=== PATIENT | female | born 1935 | race Caucasian/White ===

== ENCOUNTER 2017-09-19 10:10 | Outpatient (CLI) | payer MEDICARE, BC | END 2017-09-19 10:11 | disposition home or self-care (01) | LOC: BICMAMMO 10:10 | PROVIDERS: ATTEND Internal Medicine | DX: Z08 Encounter for follow-up examination after completed treatment for malignant neoplasm (principal); Z85.3 Personal history of malignant neoplasm of breast | CPT/HCPCS: 77066; G0279 ==

== ENCOUNTER 2018-11-28 14:17 | Outpatient (CLI) | payer MEDICARE, BC ==
--- NOTE | 2018-11-28 15:39 | MMO ---
Bilateral MAMMO Bilat Diag DDI+JOSE M. CLINICAL HISTORY: Patient is 83 years old and is seen for diagnostic exam. The patient has no family history of breast cancer. The patient has a history of Skin cancer in 2019; Segmental mastectomy. 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 The patient has a history of left Ultrasound Guided Core Biopsy in April,, left Lumpectomy in April, - malignant and left Excisional Biopsy in 2012 - benign. VIEWS: The views performed were: bilateral craniocaudal with tomosynthesis; bilateral mediolateral oblique with tomosynthesis; and bilateral mediolateral with tomosynthesis. FILMS COMPARED: The present examination has been compared to prior imaging studies performed at [facility] on 03/07/2016, 09/06/2016, 09/19/2017 and 11/28/2018. This study has been interpreted with the assistance of computer-aided detection. MAMMOGRAM FINDINGS: There are scattered fibroglandular densities. Finding 1: Benign calcifications are noted bilaterally. Finding 2: There is a questionable nodular density in the left subaerolar breast on MLO and ML views corresponding to dilated ducts on US. IMPRESSION: FINDING 1: FINDINGS IN BOTH BREASTS ARE BENIGN. FINDING 2: FINDING IN THE LEFT BREAST IS PROBABLY BENIGN. FOLLOW-UP IN 6 MONTHS IS RECOMMENDED. THE RESULTS OF THIS EXAM WERE SENT TO THE PATIENT. ACR BI-RADS Category 3 - Probably benign finding - short interval follow-up suggested. [facility] will notify the patient of the need for additional imaging services. MAMMOGRAPHY NOTE: 1. A negative mammogram report should not delay a biopsy if a dominant of clinically suspicious mass is present. 2. Approximately 10% to 15% of breast cancers are not detected by mammography. 3. Adenosis and dense breasts may obscure an underlying neoplasm. Reported by: MELANIA MENDOZA MD Electonically Signed: [id number]
--- NOTE | 2018-11-28 17:18 | ULT ---
LEFT BREAST ULTRASOUND: Date: 11/28/18 HISTORY: Previous breast cancer, abnormal mammogram today. FINDINGS: Correlation made with mammogram from today. Sonographic evaluation of the retroareolar aspect of the left breast demonstrates dilated ducts, like ly corresponding to the finding on the mammogram. IMPRESSION: BI-RADS Category 3 - Probably benign findings. 6 month follow-up left diagnostic mammogram and left b reast ultrasound recommended. The facility will notify patient of need for additional imaging services. POS: OFF
== END 2018-11-28 14:18 | disposition home or self-care (01) ==
LOC: BICMAMMO 14:17
PROVIDERS: ATTEND Internal Medicine
DX: Z08 Encounter for follow-up examination after completed treatment for malignant neoplasm (principal); Z85.3 Personal history of malignant neoplasm of breast
CPT/HCPCS: 76642; 77066; G0279

== ENCOUNTER 2019-06-05 13:56 | Outpatient (CLI) | payer MEDICARE, BC ==
--- NOTE | 2019-06-05 14:41 | MMO ---
Left Breast MAMMO Unilat Diag DDI LT+JOSE M. CLINICAL HISTORY: Patient is 84 years old and is seen for diagnostic exam. The patient has no family history of breast cancer. The patient has a history of Skin cancer in 2019; Segmental mastectomy. 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 The patient has a history of left Ultrasound Guided Core Biopsy in April,, left Lumpectomy in April, - malignant and left Excisional Biopsy in 2012 - benign. VIEWS: The views performed were: left craniocaudal with tomosynthesis; left mediolateral oblique with tomosynthesis; and left mediolateral with tomosynthesis. FILMS COMPARED: The present examination has been compared to prior imaging studies performed at [facility] on 09/06/2016, 09/19/2017 and 11/28/2018. This study has been interpreted with the assistance of computer-aided detection. MAMMOGRAM FINDINGS: There are scattered fibroglandular densities. Finding 1: There are stable benign appearing calcifications seen in the left breast. Finding 2: There is a stable mass measuring 6 millimeters with circumscribed margins seen in the sub-areolar region of the left breast. Finding 3: There is a stable focal asymmetry seen in the sub-areolar region of the left breast. IMPRESSION: FINDING 1: STABLE CALCIFICATIONS IN THE LEFT BREAST ARE BENIGN. FINDING 2: STABLE MASS IN THE SUB-AREOLAR REGION OF THE LEFT BREAST IS PROBABLY BENIGN. FOLLOW-UP IN 6 MONTHS IS RECOMMENDED. FINDING 3: STABLE FOCAL ASYMMETRY IN THE SUB-AREOLAR REGION OF THE LEFT BREAST IS PROBABLY BENIGN. FOLLOW-UP IN 6 MONTHS IS RECOMMENDED. THE RESULTS OF THIS EXAM WERE SENT TO THE PATIENT. ACR BI-RADS Category 3 - Probably benign finding - short interval follow-up suggested. [facility] will notify the patient of the need for additional imaging services. MAMMOGRAPHY NOTE: 1. A negative mammogram report should not delay a biopsy if a dominant of clinically suspicious mass is present. 2. Approximately 10% to 15% of breast cancers are not detected by mammography. 3. Adenosis and dense breasts may obscure an underlying neoplasm. Reported by: NANDA CHAPMAN MD Electonically Signed: [id number]
== END 2019-06-05 13:57 | disposition home or self-care (01) ==
LOC: BICMAMMO 13:56
PROVIDERS: ATTEND Internal Medicine
DX: R92.8 Other abnormal and inconclusive findings on diagnostic imaging of breast (principal); R92.1 Mammographic calcification found on diagnostic imaging of breast; N64.89 Other specified disorders of breast; N63.42 Unspecified lump in left breast, subareolar
CPT/HCPCS: 77065; G0279

== ENCOUNTER 2019-12-02 13:05 | Outpatient (CLI) | payer MEDICARE, BC ==
--- NOTE | 2019-12-02 14:15 | MMO ---
Bilateral MAMMO Bilat Diag DDI+JOSE M. CLINICAL HISTORY: Patient is 84 years old and is seen for screening. The patient has no family history of breast cancer. The patient has a history of Skin cancer in 2019; Segmental mastectomy. 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 The patient has a history of left Ultrasound Guided Core Biopsy in April,, left Lumpectomy in April, - malignant and left Excisional Biopsy in 2012 - benign. VIEWS: The views performed were: bilateral craniocaudal with tomosynthesis and bilateral mediolateral oblique with tomosynthesis. FILMS COMPARED: The present examination has been compared to prior imaging studies performed at [facility] on 11/28/2018, 06/05/2019 and 12/02/2019. This study has been interpreted with the assistance of computer-aided detection. MAMMOGRAM FINDINGS: There are scattered fibroglandular densities. There are no suspicious masses, suspicious calcifications, or new areas of architectural distortion. IMPRESSION: THERE IS NO MAMMOGRAPHIC EVIDENCE OF MALIGNANCY. A ROUTINE FOLLOW-UP MAMMOGRAM IN 1 YEAR IS RECOMMENDED. THE RESULTS OF THIS EXAM WERE SENT TO THE PATIENT. ACR BI-RADS Category 1 - Negative MAMMOGRAPHY NOTE: 1. A negative mammogram report should not delay a biopsy if a dominant of clinically suspicious mass is present. 2. Approximately 10% to 15% of breast cancers are not detected by mammography. 3. Adenosis and dense breasts may obscure an underlying neoplasm. Reported by: Kaden OGDEN Electonically Signed: [id number]
--- NOTE | 2019-12-02 14:20 | MMO ---
Left US Breast Limited Lt. CLINICAL HISTORY: Patient is 84 years old and is seen for . The patient has a history of Segmental mastectomy. procedure revealed invasive ductal left breast carcinoma in April, and Ultrasound guided core biopsy procedure revealed invasive ductal left breast carcinoma in April,. The patient has a history of left Ultrasound Guided Core Biopsy in April,, left Lumpectomy in April, - malignant and left Excisional Biopsy in 2012 - benign. VIEWS: The views performed were: . FILMS COMPARED: The present examination has been compared to prior imaging studies performed at [facility] on 11/28/2018, 06/05/2019 and 12/02/2019. This study has been interpreted with the assistance of computer-aided detection. LEFT BREAST ULTRASOUND FINDINGS: High-resolution real-time ultrasound scanning was performed. There is an area of duct ectasia seen in the left breast. On ultrasound, no suspicious findings are identified. IMPRESSION: THERE IS NO MAMMOGRAPHIC EVIDENCE OF MALIGNANCY. A ROUTINE FOLLOW-UP MAMMOGRAM IN 1 YEAR IS RECOMMENDED. THE RESULTS OF THIS EXAM WERE SENT TO THE PATIENT. ACR BI-RADS Category 2 - Benign finding MAMMOGRAPHY NOTE: 1. A negative mammogram report should not delay a biopsy if a dominant of clinically suspicious mass is present. 2. Approximately 10% to 15% of breast cancers are not detected by mammography. 3. Adenosis and dense breasts may obscure an underlying neoplasm. Reported by: Kaden OGDEN Electonically Signed: [id number]
== END 2019-12-02 13:06 | disposition home or self-care (01) ==
LOC: BICMAMMO 13:05
PROVIDERS: ATTEND Internal Medicine
DX: R92.8 Other abnormal and inconclusive findings on diagnostic imaging of breast (principal)
CPT/HCPCS: 76642; 77066; G0279

== ENCOUNTER 2020-12-03 10:42 | Outpatient (CLI) | payer MEDICARE, BC | END 2020-12-03 10:43 | disposition home or self-care (01) | LOC: BICMAMMO 10:42 | PROVIDERS: ATTEND Internal Medicine | DX: Z08 Encounter for follow-up examination after completed treatment for malignant neoplasm (principal); Z85.3 Personal history of malignant neoplasm of breast | CPT/HCPCS: 77066; G0279 ==

== ENCOUNTER 2021-01-09 03:12 | Inpatient (IN) | payer MEDICARE, BC ==
[2021-01-09 04:25] LABS: #Eosinphils 0.3 thou/uL (0.0-0.7); #Lymphocytes 1.9 thou/uL (1.20-3.40); #Monocytes 0.6 thou/uL (0.11-0.59); #Neutrophils 4.8 thou/uL (1.40-6.50); %Eosinophils 4.1 % (0.0-10.0); %Lymphocytes 24.8 % (21.0-51.0); %Monocytes 8.2 % (0.0-10.0); %Neutrophils 62.9 % (42.0-75.0); Mean Corpuscular HGB CONC 32.4 g/dL (32.0-36.0); Mean Corpuscular Hemoglobin 29.9 pg (27.0-31.0); Mean Corpuscular Volume 92.2 fL (78.0-98.0); Mean Platelet Volume 7.1 fL (7.4-10.4); Platelet Count 238 thou/uL (130-400); RBC Distribution Width 12.8 % (11.5-14.5); Red Blood Cell (RBC) Count 3.35 mill/uL (4.20-5.40); White Blood Cell (WBC) Count 7.6 thou/uL (4.8-10.8)
[2021-01-09] MEDS ORDERED: Sodium Chloride 0.9% (PF) 10 ML VIAL FS PRN (04:30)
[2021-01-09] MEDS ORDERED: Pantoprazole 40 MG VIAL IVP SCH (04:30)
[2021-01-09 04:38] LABS: ALT (SGPT) 10 U/L (8-55); AST (SGOT) 14 U/L (5-34); Albumin 3.1 g/dL (3.4-4.8); Alkaline Phosphatase 80 U/L (40-110); Anion Gap 9 mmol/L (10-20); BUN (Urea Nitrogen) 18 mg/dL (9.8-20.1); Bilirubin, Total 0.5 mg/dL (0.2-1.2); Calc. Creatinine Clearance 0 mL/min (70-130); Calcium 9.1 mg/dL (7.8-10.44); Carbon Dioxide 28 mmol/L (23-31); Chloride 109 mmol/L (98-107); Globulin 2.8 g/dL (2.4-3.5); Glucose 107 mg/dL (83-110); INR-International Normal Ratio 1.1; Lipase 47 U/L (8-78); Protein, Total 5.9 g/dL (5.8-8.1); Prothrombin Time 14.2 sec (12.0-14.7); Sodium 142 mmol/L (136-145)
[2021-01-09 04:39] LABS: PTT 31.6 sec (22.9-36.1)
[2021-01-09] MEDS ORDERED: Senokot S 8.6-50 MG TAB PO PRN (07:12)
[2021-01-09] MEDS ORDERED: Loperamide HCl 2 MG CAP PO PRN (07:12)
[2021-01-09] MEDS ORDERED: Acetaminophen 325 MG TAB PO PRN (07:12)
[2021-01-09] MEDS ORDERED: Guaifenesin DM 100-10/5 ML UDCUP PO PRN (07:12)
[2021-01-09] MEDS ORDERED: Calcium Carbonate 500 MG ChewTAB PO PRN (07:12)
[2021-01-09] MEDS ORDERED: Ondansetron ODT 4 MG TAB PO PRN (07:12)
[2021-01-09] MEDS ORDERED: Bisacodyl 10 MG SUPP PR PRN (07:12)
[2021-01-09] MEDS ORDERED: Ondansetron PF 4 MG/2 ML Vial IVP PRN (07:12)
[2021-01-09] MEDS ORDERED: Artificial Tear Sol 15 ML BOT EA EYE PRN (07:14)
[2021-01-09] MEDS ORDERED: Hydrocerin (Eucerin) Cream 120 gm Jar TOP PRN (07:14)
[2021-01-09] MEDS ORDERED: Sodium Chloride 0.65% Nasal 44 ML BOT EA NARE PRN (07:14)
[2021-01-09] MEDS ORDERED: Loratadine 10 MG TAB PO PRN (07:14)
[2021-01-09] MEDS ORDERED: Cepastat Lozenges 1 LOZ PO PRN (07:14)
[2021-01-09] MEDS: Flecainide 50 MG TAB PO SCH ×2 (09:27→19:42)
[2021-01-09] MEDS: Lisinopril 20 MG TAB PO SCH ×2 (09:27→19:42)
[2021-01-09] MEDS: Multivitamin W/ Minerals 1 TAB PO SCH ×2 (09:27→19:43)
[2021-01-09] MEDS: Pantoprazole 40 MG VIAL IVP SCH ×2 (09:27→19:41)
[2021-01-09] MEDS: Isosorbide Mononitrate 20 MG TAB PO SCH ×2 (09:27→19:43)
[2021-01-09] MEDS: hydrALAZINE 20 MG/ML VIAL SLOW IVP PRN ×3 (09:28→23:30)
[2021-01-09 12:33] VITALS: BMI 28.3
[2021-01-09 15:58] LABS: Hemoglobin 9.6 g/dL (12.0-16.0)
[2021-01-09 19:03] LABS: Hemoglobin 8.8 g/dL (12.0-16.0)
[2021-01-09] MEDS: Simvastatin 10 MG TAB PO SCH (19:42)
[2021-01-09] MEDS: Melatonin 3 MG TAB PO SCH (19:43)
[2021-01-09 23:39] LABS: Hemoglobin 7.6 g/dL (12.0-16.0)
[2021-01-10 05:30] LABS: #Eosinphils 0.3 thou/uL (0.0-0.7); #Lymphocytes 2.3 thou/uL (1.20-3.40); #Monocytes 0.6 thou/uL (0.11-0.59); #Neutrophils 5.2 thou/uL (1.40-6.50); %Basophils 0.5 % (0.0-1.0); %Eosinophils 3.4 % (0.0-10.0); %Monocytes 7.5 % (0.0-10.0); %Neutrophils 61.6 % (42.0-75.0); Mean Corpuscular HGB CONC 32.5 g/dL (32.0-36.0); Mean Corpuscular Volume 92.4 fL (78.0-98.0); Mean Platelet Volume 6.7 fL (7.4-10.4); Platelet Count 216 thou/uL (130-400); RBC Distribution Width 12.9 % (11.5-14.5); Red Blood Cell (RBC) Count 2.66 mill/uL (4.20-5.40); White Blood Cell (WBC) Count 8.4 thou/uL (4.8-10.8)
[2021-01-10 05:49] LABS: ALT (SGPT) 10 U/L (8-55); AST (SGOT) 13 U/L (5-34); Albumin 2.8 g/dL (3.4-4.8); Alkaline Phosphatase 65 U/L (40-110); Anion Gap 11 mmol/L (10-20); BUN (Urea Nitrogen) 16 mg/dL (9.8-20.1); Bilirubin, Total 0.5 mg/dL (0.2-1.2); Calc. Creatinine Clearance 54 mL/min (70-130); Calcium 8.5 mg/dL (7.8-10.44); Carbon Dioxide 23 mmol/L (23-31); Chloride 110 mmol/L (98-107); Globulin 2.4 g/dL (2.4-3.5); Glucose 100 mg/dL (83-110); Potassium 4.1 mmol/L (3.5-5.1); Protein, Total 5.2 g/dL (5.8-8.1); Sodium 140 mmol/L (136-145)
[2021-01-10] MEDS: Levothyroxine Sodium 75 MCG TAB PO SCH (06:08)
[2021-01-10] MEDS: Multivitamin W/ Minerals 1 TAB PO SCH ×2 (10:21→20:52)
[2021-01-10] MEDS: Amlodipine 5 MG TAB PO SCH (10:21)
[2021-01-10] MEDS: Isosorbide Mononitrate 20 MG TAB PO SCH ×2 (10:22→20:52)
[2021-01-10] MEDS: Flecainide 50 MG TAB PO SCH ×2 (10:22→20:52)
[2021-01-10] MEDS: Lisinopril 20 MG TAB PO SCH ×2 (10:22→20:52)
[2021-01-10] MEDS: Pantoprazole 40 MG VIAL IVP SCH ×2 (10:24→21:56)
[2021-01-10 11:12] LABS: SARS-CoV-2 PCR by NAA Not Detected (NotDetected)
[2021-01-10] MEDS ORDERED: Ferrous Sulfate 325 MG TAB PO SCH (18:00)
[2021-01-10] MEDS: Melatonin 3 MG TAB PO SCH (20:52)
[2021-01-10] MEDS: Simvastatin 10 MG TAB PO SCH (20:52)
[2021-01-11 05:15] LABS: #Eosinphils 0.4 thou/uL (0.0-0.7); #Lymphocytes 1.7 thou/uL (1.20-3.40); #Monocytes 0.7 thou/uL (0.11-0.59); #Neutrophils 4.6 thou/uL (1.40-6.50); %Basophils 0.5 % (0.0-1.0); %Eosinophils 5.4 % (0.0-10.0); %Lymphocytes 22.5 % (21.0-51.0); %Monocytes 9.6 % (0.0-10.0); %Neutrophils 62.1 % (42.0-75.0); Hemoglobin 7.7 g/dL (12.0-16.0); Mean Corpuscular HGB CONC 32.2 g/dL (32.0-36.0); Mean Corpuscular Hemoglobin 29.9 pg (27.0-31.0); Mean Corpuscular Volume 92.8 fL (78.0-98.0); Mean Platelet Volume 6.8 fL (7.4-10.4); Platelet Count 214 thou/uL (130-400); RBC Distribution Width 13.1 % (11.5-14.5); Red Blood Cell (RBC) Count 2.59 mill/uL (4.20-5.40); White Blood Cell (WBC) Count 7.3 thou/uL (4.8-10.8)
[2021-01-11 05:32] LABS: Anion Gap 10 mmol/L (10-20); BUN (Urea Nitrogen) 17 mg/dL (9.8-20.1); Calc. Creatinine Clearance 53 mL/min (70-130); Calcium 8.5 mg/dL (7.8-10.44); Carbon Dioxide 25 mmol/L (23-31); Chloride 110 mmol/L (98-107); Glucose 93 mg/dL (83-110); Potassium 4.1 mmol/L (3.5-5.1); Sodium 141 mmol/L (136-145)
[2021-01-11] MEDS: Levothyroxine Sodium 75 MCG TAB PO SCH (06:02)
[2021-01-11] MEDS ORDERED: Ferrous Sulfate 325 MG TAB PO SCH (08:00)
[2021-01-11] MEDS: Lisinopril 20 MG TAB PO SCH (08:02)
[2021-01-11] MEDS: Amlodipine 5 MG TAB PO SCH (08:02)
[2021-01-11] MEDS: Isosorbide Mononitrate 20 MG TAB PO SCH (08:02)
[2021-01-11] MEDS: Multivitamin W/ Minerals 1 TAB PO SCH (08:02)
[2021-01-11] MEDS: Flecainide 50 MG TAB PO SCH (08:02)
[2021-01-11 08:03] VITALS: BP 163/72
[2021-01-11] MEDS: Pantoprazole 40 MG VIAL IVP SCH (08:03)
[2021-01-11 12:32] VITALS: TEMP 98.3
== END 2021-01-11 11:40 | disposition home or self-care (01) | DRG 378 ==
LOC: ERS 03:12 → 2NO 05:27
PROVIDERS: ADMIT Student in an Organized Health Care Education/Training Program; ATTEND Internal Medicine
DX: K57.31 Diverticulosis of large intestine without perforation or abscess with bleeding (principal); D62 Acute posthemorrhagic anemia; Z20.822 Contact with and (suspected) exposure to COVID-19; I48.0 Paroxysmal atrial fibrillation; I10 Essential (primary) hypertension; E78.5 Hyperlipidemia, unspecified; M19.90 Unspecified osteoarthritis, unspecified site; E03.9 Hypothyroidism, unspecified; Z96.651 Presence of right artificial knee joint; Z88.5 Allergy status to narcotic agent; Z91.048 Other nonmedicinal substance allergy status; Z79.82 Long term (current) use of aspirin; Z79.899 Other long term (current) drug therapy; Z90.710 Acquired absence of both cervix and uterus
CPT/HCPCS: 36415; 80048; 80053; 82274; 83690; 85025; 85610; 85730; 86850; 86900; 86901; 93005; 96374; C9113; J0360; J2405; U0003; U0005

== ENCOUNTER 2021-12-08 10:57 | Outpatient (CLI) | payer MEDICARE, BC | END 2021-12-08 10:58 | disposition home or self-care (01) | LOC: BICMAMMO 10:57 | PROVIDERS: ATTEND Internal Medicine | DX: Z12.31 Encounter for screening mammogram for malignant neoplasm of breast (principal); Z98.890 Other specified postprocedural states; Z80.3 Family history of malignant neoplasm of breast | CPT/HCPCS: 77063; 77067 ==

== ENCOUNTER 2022-01-22 22:57 | Observation (INO) | payer MEDICARE, BC ==
[~2022-01-22 22:57] MED LIST: Iopamidol-370 76% 500 ML 1 ML ONE
[2022-01-22 23:38] LABS: #Basophils 0.1 thou/uL (0.0-0.2); #Eosinphils 0.2 thou/uL (0.0-0.7); #Lymphocytes 2.5 thou/uL (1.20-3.40); #Monocytes 0.7 thou/uL (0.11-0.59); #Neutrophils 6.9 thou/uL (1.40-6.50); %Basophils 0.5 % (0.0-1.0); %Lymphocytes 24.2 % (21.0-51.0); %Monocytes 6.8 % (0.0-10.0); %Neutrophils 66.5 % (42.0-75.0); Hemoglobin 11.8 g/dL (12.0-16.0); Mean Corpuscular HGB CONC 31.4 g/dL (32.0-36.0); Mean Corpuscular Volume 92.2 fl (78.0-98.0); Mean Platelet Volume 7.9 fL (7.4-10.4); Platelet Count 201 10x3/uL (130-400); RBC Distribution Width 13.2 % (11.5-14.5); Red Blood Cell (RBC) Count 4.06 mill/uL (4.20-5.40); White Blood Cell (WBC) Count 10.4 10x3/uL (4.8-10.8)
[2022-01-22 23:57] LABS: ALT (SGPT) 12 U/L (8-55); AST (SGOT) 15 U/L (5-34); Albumin 3.5 g/dL (3.4-4.8); Alkaline Phosphatase 80 U/L (40-110); Anion Gap 12 mmol/L (10-20); BUN (Urea Nitrogen) 28 mg/dL (9.8-20.1); Bilirubin, Total 0.4 mg/dL (0.2-1.2); Calc. Creatinine Clearance 0 mL/min (70-130); Calcium 9.2 mg/dL (7.8-10.44); Carbon Dioxide 24 mmol/L (23-31); Chloride 112 mmol/L (98-107); Estimated GFR 60; Globulin 2.8 g/dL (2.4-3.5); Glucose 111 mg/dL (83-110); Potassium 4.3 mmol/L (3.5-5.1); Protein, Total 6.3 g/dL (5.8-8.1); Sodium 144 mmol/L (136-145)
[2022-01-23] LABS: PTT 27.2 sec (22.9-36.1); Prothrombin Time 13.9 sec (12.0-14.7)
[2022-01-23] MEDS ORDERED: Piperacillin/Tazobactam 3.375 GM VIAL ONE (01:10)
[2022-01-23] MEDS ORDERED: metroNIDAZOLE 500 MG/100 ML BAG ONE (01:54)
[2022-01-23] MEDS ORDERED: Acetaminophen 325 MG TAB PO PRN (04:12)
[2022-01-23] MEDS ORDERED: Ondansetron ODT 4 MG TAB PO PRN ×2 (04:12→06:09)
[2022-01-23] MEDS ORDERED: Ondansetron PF 4 MG/2 ML Vial IVP PRN (04:12)
[2022-01-23 05:37] LABS: SARS-CoV-2 NAA Rapid Test Not Detected (NotDetected)
[2022-01-23 06:30] VITALS: BMI 29.3
[2022-01-23] MEDS ORDERED: Piperacillin/Tazobactam 3.375 GM in Sodium Chloride 0.9% 100 ML IVPB SCH (06:30)
[2022-01-23] MEDS: Pantoprazole 40 MG VIAL IVP SCH ×2 (08:43→21:07)
[2022-01-23] MEDS ORDERED: metroNIDAZOLE 500 MG in Premix Bag 1 BAG IVPB SCH (10:00)
[2022-01-23] MEDS: Piperacillin/Tazobactam 3.375 GM in Sodium Chloride 0.9% 100 ML IVPB SCH ×2 (15:29→21:07)
[2022-01-24 05:10] LABS: #Eosinphils 0.3 thou/uL (0.0-0.7); #Lymphocytes 2.5 thou/uL (1.20-3.40); #Monocytes 0.8 thou/uL (0.11-0.59); #Neutrophils 6.4 thou/uL (1.40-6.50); %Basophils 0.3 % (0.0-1.0); %Eosinophils 2.7 % (0.0-10.0); %Lymphocytes 24.8 % (21.0-51.0); %Monocytes 8.4 % (0.0-10.0); %Neutrophils 63.8 % (42.0-75.0); Hemoglobin 10.3 g/dL (12.0-16.0); Mean Corpuscular HGB CONC 31.5 g/dL (32.0-36.0); Mean Corpuscular Hemoglobin 29.3 pg (27.0-31.0); Mean Corpuscular Volume 92.9 fl (78.0-98.0); Mean Platelet Volume 7.5 fL (7.4-10.4); Platelet Count 182 10x3/uL (130-400); RBC Distribution Width 13.3 % (11.5-14.5); Red Blood Cell (RBC) Count 3.53 mill/uL (4.20-5.40)
[2022-01-24 05:33] LABS: Anion Gap 10 mmol/L (10-20); BUN (Urea Nitrogen) 17 mg/dL (9.8-20.1); Calc. Creatinine Clearance 53 mL/min (70-130); Calcium 8.9 mg/dL (7.8-10.44); Carbon Dioxide 24 mmol/L (23-31); Chloride 112 mmol/L (98-107); Estimated GFR 61; Glucose 88 mg/dL (83-110); Potassium 4.1 mmol/L (3.5-5.1); Sodium 142 mmol/L (136-145)
[2022-01-24] MEDS: Piperacillin/Tazobactam 3.375 GM in Sodium Chloride 0.9% 100 ML IVPB SCH ×2 (05:33→13:39)
[2022-01-24 05:34] VITALS: TEMP 98
[2022-01-24] MEDS: Pantoprazole 40 MG VIAL IVP SCH (08:27)
[2022-01-24 16:02] VITALS: BP 171/70
== END 2022-01-24 15:31 | disposition home or self-care (01) ==
LOC: ERS 22:57 → SURG A 01-23 02:32
PROVIDERS: ADMIT Student in an Organized Health Care Education/Training Program; ATTEND Hospitalist
DX: K57.33 Diverticulitis of large intestine without perforation or abscess with bleeding (principal); I10 Essential (primary) hypertension; E03.9 Hypothyroidism, unspecified; E78.5 Hyperlipidemia, unspecified; Z86.010 Personal history of colon polyps; Z79.82 Long term (current) use of aspirin; Z88.5 Allergy status to narcotic agent; Z20.822 Contact with and (suspected) exposure to COVID-19
CPT/HCPCS: 74177; 80048; 80053; 85014; 85018; 85025 ×2; 85610; 85730; 86850; 86900; 86901; 96366 ×2; 96374; 96375 ×2; 96376 ×2; 99285; G0378 ×3; U0002; 36415; 82274; C9113; J2543; J3490; Q9967